=== PATIENT | male | born 1995 | race Caucasian/White ===

== ENCOUNTER 2022-12-13 11:57 | Outpatient (CLI) | payer OTHER, SELFPAY ==
[2022-12-13 13:33] LABS: Liquefaction Semen Complete in 30 min. (<30 minutes); Semen Color Opaque (Grey-opaque); Semen Immotility 10 %; Semen Non-Progressive Motility 30 %; Semen Progressive Motility 60 % (>32); Semen Viscosity Increased (Not Increa.); pH Semen 8.5 (7.2-8.0)
[2022-12-13 13:34] LABS: Semen Morphology Result to Follow; Semen Total Motility 90 (>40% (PM+NP)); Sperm Count 37.4 Mil/mL (60-150 million/mL)
[2022-12-16 21:00] LABS: Fructose, Semen 113 mg/dL (150-600)
== END 2022-12-13 11:58 | disposition home or self-care (01) ==
PROVIDERS: PCP Nurse Practitioner Obstetrics & Gynecology; Visit Provider Advanced Practice Midwife
DX: Z30.09 Encounter for other general counseling and advice on contraception (principal)
CPT/HCPCS: 82757; 88160; 89320